=== PATIENT | female | born 1950 | race Asian ===

== ENCOUNTER 2022-11-03 18:47 | Emergency (ER) | payer MEDICARE ==
[~2022-11-03] VITALS: Ht 157.5 cm; Wt 54.4 kg
--- NOTE | 2022-11-03 18:49 | NUR ---
ER at bedside examining patient.
[2022-11-03 18:55] VITALS: BP_SYST 169
[2022-11-03] MEDS ORDERED: LORazepam 1 MG TABLET ONE (18:55)
[2022-11-03] MEDS ORDERED: LORazepam 2 MG/ML VIAL ONE ×2 (18:55→19:25)
--- NOTE | 2022-11-03 18:57 | NUR ---
Pt to CT scan accompanied by RN Abdi. via kal.
[2022-11-03] MEDS ORDERED: iohexoL 350 mgI/mL, 100 ML INFUS..BTL IV ONE (19:00)
--- NOTE | 2022-11-03 19:05 | NUR ---
CODE STROKE CALLED/ B/S BY F/S 134MG/DL
[2022-11-03 19:28] LABS: BASOPHILS % (AUTO) 0.8 % (0.0-2.0); EOSINOPHILS # (AUTO) 0.2 K/uL (0.0-0.4); EOSINOPHILS % (AUTO) 3.1 % (0.0-4.0); HEMATOCRIT 33.2 % (36-48); HEMOGLOBIN 10.5 g/dL (12.0-16.0); LYMPHOCYTES # (AUTO) 1.6 K/uL (1.0-5.5); LYMPHOCYTES % (AUTO) 29.1 % (20.5-51.5); MEAN CORPUSCULAR HEMOGLOBIN 21 pg (27-31); MEAN CORPUSCULAR HGB CONC 32 % (32-36); MEAN CORPUSCULAR VOLUME 66 fL (79.0-98.0); MONOCYTES # (AUTO) 0.5 K/uL (0.0-1.0); MONOCYTES % (AUTO) 9.8 % (1.7-9.3); NEUTROPHILS # (AUTO) 3.1 K/uL (1.8-7.7); NEUTROPHILS % (AUTO) 57.2 % (40.0-70.0); PLATELET COUNT (AUTO) 338 K/uL (130-430); RED CELL DISTRIBUTION WIDTH 15.9 % (9.0-15.0); WHITE BLOOD COUNT (AUTO) 5.3 K/uL (4.8-10.8)
[2022-11-03] MEDS ORDERED: LORazepam 2 MG/ML VIAL IVP ONE (19:30)
[2022-11-03] MEDS ORDERED: levETIRAcetam 1,000 MG in NS 90 ML IV ONE (19:30)
[2022-11-03 19:40] LABS: ANION GAP 12 (5-15); CALCIUM 8.6 mg/dL (8.4-11.0); CHLORIDE 98 mmol/L (98-107); GLUCOSE 135 mg/dL (70-99); UREA NITROGEN, BLOOD 12 mg/dL (8-21)
[2022-11-03 19:41] LABS: INR 1.1 (0.8-1.2)
[2022-11-03 19:47] LABS: ALANINE AMINOTRANSFERASE 21 U/L (12-78); ALBUMIN 3.2 g/dL (3.4-4.8); ASPARTATE AMINOTRANSFERASE 23 U/L (10-37); CHOLESTEROL 148 mg/dL (<200); HDL CHOLESTEROL 56 mg/dL (>55); TOTAL BILIRUBIN 0.2 mg/dL (0.0-1.0); TRIGLYCERIDES 83 mg/dL (30-150)
--- NOTE | 2022-11-03 20:33 | NUR ---
COVID SWAB OBTAINED AND SENT TO LAB
[2022-11-03] MEDS ORDERED: ASPIRIN 81 MG TABLET(ECOTRIN) PO ONE (22:15)
--- NOTE | 2022-11-03 23:43 | NUR ---
REPORT CALLED TO [facility] ICU FOR BED 224 TO JOCY MCCARTY. ALL QUESTIONS ANSWERED. PT VSS. TWITCHING HAS STOPPED. PT AAOX2 NOW. [facility] TRANSPORT "[facility]" EXPECTED AT 0000. ACCEPTING Stella GARVIN DR. WILL CONT TO MONITOR PT.
[2022-11-04 01:12] VITALS: BP_SYST 138
--- NOTE | 2022-11-04 01:13 | NUR ---
REPORT TO [facility] TRANSFER TO [facility] ICU ROOM 224. PACKET PROVIDED. PT VSS. HOPE NOTED. PT TRANSFERRED TO [facility]. END OF CARE. Addendum: 11/04/22 at 0120 by [email or web address] REPORT TO [facility] UNIT #[id number] TRANSFER TO [facility] ICU ROOM 224. PACKET PROVIDED. PT VSS. HOPE NOTED. PT TRANSFERRED TO [facility]. END OF CARE.
== END 2022-11-04 01:15 | disposition short-term general hospital (02) ==
LOC: SED 18:47
DX: R41.82 Altered mental status, unspecified (principal); G40.209 Localization-related (focal) (partial) symptomatic epilepsy and epileptic syndromes with complex partial seizures, not intractable, without status epilepticus; I69.354 Hemiplegia and hemiparesis following cerebral infarction affecting left non-dominant side; I10 Essential (primary) hypertension; Z79.899 Other long term (current) drug therapy; Z20.822 Contact with and (suspected) exposure to COVID-19
CPT/HCPCS: 99285; 70496; 96365; 71045; 96375; 87426; 80061; 80053; 85025; 85610; 85730; 86886; 86900; 86901; 84484; 36415; 93005; 70498; 70450; 76376; Q9967; J1953; J2060